=== PATIENT | female | born 1965 | race Caucasian/White ===

== ENCOUNTER 2024-08-27 13:22 | Emergency (ER) | payer OTHER, SELFPAY ==
[2024-08-27 14:37] VITALS: BP 163/99; PULSE 101; RESP 18; TEMP 37.5; O2SAT 99
[2024-08-27 15:09] LABS: EDCOVIDSCREEN Negative (Negative); EDINFLUASCREEN Negative (Negative); EDINFLUBSCREEN Negative (Negative)
--- NOTE | 2024-08-27 15:16 | ED_ITS ---
HPI - Nausea/Vomiting/Diarrhea General Chief complaint: Nausea/Vomiting/Diarrhea Stated complaint: Vomiting/Flu Symptoms Time Seen by Provider: 08/27/24 15:03 Source: patient and RN notes reviewed Mode of arrival: ambulatory Limitations: no limitations History of Present Illness HPI Narrative: Patient presents today complaining of a 2 day history of vomiting at least 4-5 times per day, diarrhea 3-4 times per day, body aches, sweats, chills. She has been able to drink very cold water in very small amounts, but is in taking nothing else. She tried to go to work today but ended up vomiting and shaky. 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 Related Data Allergies Allergy/AdvReac Type Severity Reaction Status Date / Time No Known Allergies Allergy Verified 08/27/24 14:20 Review of Systems Review of Systems: CONSTITUTIONAL: + body aches, chills, sweats EYES: Denies visual changes, redness, or discharge. ENT: Denies rhinorrhea, congestion, sore throat, or otalgia. CARDIOVASCULAR: Denies chest pain, palpitations, or edema. RESPIRATORY: Denies cough or dyspnea. GASTROINTESTINAL: Denies abdominal pain. + nausea, vomiting, diarrhea GENITOURINARY: Denies dysuria or hematuria. SKIN: Denies rash, itching, or wounds. MUSCULOSKELETAL: Denies back pain, joint pain, or myalgia. NEUROLOGIC: Denies headache, numbness, tingling, or weakness. PSYCH: Denies depression or anxiety. PMFSH Comments At time of signature, I have reviewed and agree with nursing past medical, surgical, social and family history unless otherwise noted. Please see nursing chart for further information. There is no relevant family history pertinent to the presenting complaint Exam Narrative: GENERAL: Ill-appearing, well-nourished, and in no acute distress. HEAD: Normocephalic, atraumatic. EYES: EOMI. PERRL. No redness or drainage. Conjunctivae normal. ENT: Mucous membranes pink and moist. NECK: Normal AROM. CHEST: No respiratory distress. Clear to auscultation. HEART: Regular rate and rhythm. No murmur appreciated. Normal peripheral pulses. ABDOMEN: Soft, nontender, nondistended, normal active bowel sounds. MUSCULOSKELETAL: No bony tenderness. EXTREMITIES: Normal range of motion. No edema. Shaky SKIN: Warm, dry, no rash. Capillary refill normal. Normal skin turgor. NEURO: No focal deficits. Alert and oriented x3. Gait unsteady from chair to exam table. Needed to hold onto table for stability. PSYCH: Anxious Course Course Level of Care: Express Care Visit Vital Signs Vital signs: Vital Signs Temperature 99.5 F 08/27/24 14:37 Pulse Rate 101 H 08/27/24 14:37 Respiratory Rate 18 08/27/24 14:37 Blood Pressure 163/99 H 08/27/24 14:37 Pulse Oximetry 99 08/27/24 14:37 Oxygen Delivery Room Air 08/27/24 14:37 Temperature 99.5 F 08/27/24 14:37 Pulse Rate 101 H 08/27/24 14:37 Respiratory Rate 18 08/27/24 14:37 Blood Pressure 163/99 H 08/27/24 14:37 Pulse Oximetry 99 08/27/24 14:37 Oxygen Delivery Room Air 08/27/24 14:37 Reviewed MDM - Nausea/Vomiting/Diarrhea MDM Narrative Medical decision making narrative: Recommend patient proceed to the ER for further evaluation due to shakin g/instability/continued nausea, vomiting, diarrhea. Patient declines transfer at this time. Would like to go home. Prescription for ODT Zofran sent. Anticipatory guidance. ED precautions given. Differential Diagnosis Differential diagnosis: Likely food poisoning, gastroenteritis, dehydration and other (Viral syndrome) Lab Data Labs: Lab Results 08/27/24 08/27/24 Range/Units 15:07 15:23 POC Capillary Glucose 97 (65-105) mg/dl POC Influenza A Ag Negative (Negative) POC Influenza B Ag Negative (Negative) POC SARS CoV-2 Ag Negative (Negative) Critical Care Time Critical Care Time Critical Care Time: No Discharge Plan Discharge Clinical Impression: Nausea vomiting and diarrhea Patient Disposition: Home, Self-Care Condition: Stable Instructions: Acute Nausea and Vomiting (DC), Acute Diarrhea (ED) Additional Instructions: Please take the Zofran as prescribed for your nausea and vomiting. Stay hydrated. Be sure to drink fluids that have electrolytes in the along with water. Follow-up with your PCP in 3 days if symptoms are not improving. Go to the ER immediately if symptoms worsen. Your blood pressure was elevated above 120/80 today at Urgent Care. This puts you above the threshold for follow up. Please schedule a followup visit with your personal physician as soon as possible, for further evaluation and treatment. Even blood pressure exceeding 120/80 may indicate pre-hypertension. Patient Language: Dominican Prescriptions: New ondansetron 8 mg tablet,disintegrating 8 mg PO Q4-6H PRN (Reason: nausea and vomiting) Qty: 20 0RF Follow-up/Referrals: PHYSICIAN,FACILITIES OFFICER [Primary Care Provider] - Stand Alone Forms: Work/School Release IP Time of Disposition: 15:43
[2024-08-27 15:25] LABS: Glucose Point of Care 97 mg/dl (65-105)
== END 2024-08-27 15:49 | disposition home or self-care (01) ==
PROVIDERS: Emergency Provider Nurse Practitioner
DX: R11.2 Nausea with vomiting, unspecified (principal); R19.7 Diarrhea, unspecified; Z20.822 Contact with and (suspected) exposure to COVID-19
CPT/HCPCS: 82948; 87426; 87804; 99203; G0463